=== PATIENT | male | born 1990 | race Caucasian/White ===

== ENCOUNTER 2017-09-01 19:57 | Emergency (ER) | payer BC, OTHER ==
[~2017-09-01] VITALS: Ht 175.3 cm; Wt 106.6 kg
[2017-09-01 20:57] LABS: STREPTOCOCCUS GRP A ANTIGEN NEGATIVE (NEGATIVE)
[2017-09-01] MEDS ORDERED: ALBUTEROL/IPRATROPIUM 3 ML NEB NEB ONE (21:00)
[2017-09-01 21:07] LABS: INFLUENZAE A&B ANTIGEN (RAPID) NEGATIVE (NEGATIVE)
--- NOTE | 2017-09-01 21:14 | Diagnostic Imaging Report ---
CHEST 2 VIEWS, Technique: CHEST 2 VIEWS Comparison: None Clinical history: fever DISCUSSION: Unremarkable appearance of the heart, mediastinum, lungs and pleural spaces. IMPRESSION: No acute abnormality Signed by: Dr Sary Ngo MD on 09/01/2017 9:11 PM
== END 2017-09-01 22:47 | disposition home or self-care (01) ==
LOC: ER 19:57
DX: R50.9 Fever, unspecified (principal); J20.8 Acute bronchitis due to other specified organisms
CPT/HCPCS: 71046; 83518; 87070; 87400; 99283